=== PATIENT | female | born 1955 | race Caucasian/White ===

== ENCOUNTER 2019-01-06 11:31 | Inpatient (IN) ==
--- NOTE | 2018-11-25 13:42 | PAT Medication Instructions ---
Medication Instructions Date of Service November 25, 2018 Home Medications amitriptyline 25 mg PO HS conjugated estrogens [Premarin] 1.25 mg VAGINAL 2XWK levothyroxine 112 mcg PO DAILY pantoprazole 40 mg PO DAILY PRN Continue as directed conjugated estrogens [Premarin] 1.25 mg VAGINAL 2XWK Take morning of surgery With a small sip of water, OTHERWISE NOTHING TO EAT OR DRINK AFTER MIDNIGHT: levothyroxine 112 mcg PO DAILY pantoprazole 40 mg PO DAILY PRN (if needed) Take evening before surgery amitriptyline 25 mg PO HS Other Notes If you have any questions please call us at [phone] or [phone] or [phone] or [phone]
--- NOTE | 2018-11-29 13:07 | Anesthesiology Consultation ---
Date of Service November 29, 2018 Assessment & Plan (1) Encounter for pre-operative examination: Chart Review Chart Review: Acceptable Risk for Surgery (pending preop testing (labs, EKG, CXR)) and Patient seen in Pre Admission Testing Teaching & Discussion Pre-Anesthesia Teaching/Discussion Notes: Instructed NPO after midnight before surgery,except medications with 15 cc of water. Medication instructions provided according to the PAT guidelines. History Surgery Operation Date: 01/06/19 13:00 Proposed Procedures p Right Anterior Total Hip Arthroplasty - Francis Bartholomew DO Height/Weight Height: 5 ft 5 in Weight: 64.4 kg Allergies Allergy/AdvReac Type Severity Reaction Status Date / Time No Known Allergies Allergy Verified 11/22/18 15:06 Medications Home Medications Medication Instructions Recorded Confirmed Last Taken amitriptyline 25 mg PO HS 11/22/18 11/22/18 Unknown conjugated estrogens [Premarin] 1.25 mg VAGINAL 2XWK 11/22/18 11/22/18 Unknown levothyroxine 112 mcg PO DAILY 11/22/18 11/22/18 Unknown pantoprazole 40 mg PO DAILY PRN 11/22/18 11/22/18 Unknown Past Medical History Medical History GERD (gastroesophageal reflux disease) diet controlled Hx of Graves' disease s/p thyroidectomy Osteoarthritis Presence of pessary Exercise / Class Metabolic Activity II 4-5 Yardwork/Stairs/Walk up hill Past Family History Family History Father Family history of diabetes mellitus Sister FHx: lung cancer Past Surgical History Surgical History Hx of colonoscopy Hx of total thyroidectomy Past Anesthesia History No Hx of Anesthesia Complications and No Family Hx of Anesthesia Complications History of PONV No Hx of PONV and Hx of Motion Sickness (rare on boats) Social History Smoking Status: Never smoker Do You Dip or Chew Tobacco: No Hx Alcohol Use: No Hx Substance Use: No Review of Systems Reflux controlled. Patient denies chest pain, shortness of breath, dyspnea on e xertion, cough, wheezing, palpitations. Physical Exam Vital Signs VITALS BP 151/91 P 81 TEMP 98.8 SP02 97%RA RESP 16 PHYSICAL Full neck and c-spine range of motion. Full TMJ range of motion. TMD 3 finger breaths Mallampati Score 2 Dentition: missing/chipped molars per patient Lungs: clear throughout to auscultation Cardiac: regular rate and rhythm, I/ systolic murmur Spine: normal Carotid arteries: negative bruit Extremities: no edema
--- NOTE | 2018-11-29 14:03 | XRay Report ---
TWO VIEW CHEST CLINICAL HISTORY: Preoperative examination. FINDINGS: PA and lateral chest radiographs are obtained. No prior studies are available for compariso n at the time of dictation. The cardiomediastinal silhouette is unremarkable. There are scattered t iny calcified granulomas. No airspace consolidation or pleural effusion is identified. There is no pn eumothorax. The bony thorax appears intact. There is mild S-shaped thoracolumbar scoliosis. IMPRESSION: No active disease in the chest. Electronically signed by: Lenin Hudson M.D. 11/29/2018 2:02 PM
[2018-11-29 14:54] LABS: Basophils # (auto) 0.02 K/uL (0-0.2); Basophils % (auto) 0.3 %; Eosinophils # (auto) 0.05 K/uL (0-0.5); Eosinophils % (auto) 0.7 %; Hematocrit (blood only) 42.4 % (37-47); Hemoglobin 14.9 g/dL (12.0-16.0); Immature Granulocytes # (auto) 0.01 K/uL (0.00-0.02); Immature Granulocytes % (auto) 0.1 %; Lymphocytes # (auto) 1.39 K/uL (1.2-3.4); Mean Corpuscular Hemoglobin 31.6 pg (25-34); Mean Corpuscular Hgb Conc 35.1 g/dL (32-36); Mean Corpuscular Volume 89.8 fL (80-100); Mean Platelet Volume 9.4 fL (7.4-10.4); Monocytes # (auto) 0.47 K/uL (0.11-0.59); Monocytes % (auto) 6.4 %; Neutrophils # (auto) 5.39 K/uL (1.4-6.5); Neutrophils % (auto) 73.5 %; Platelet Count 245 K/uL (130-400); RDW Coefficient of Variation 11.7 % (11.5-14.5); RDW Standard Deviation 37.9 fL (36.4-46.3); Red Blood Count 4.72 M/uL (4.2-5.4); White Blood Count 7.33 K/uL (4.8-10.8)
[2018-11-29 15:01] LABS: BUN Creatinine Ratio 26.3 (10-20); Calcium 9.5 mg/dl (8.5-10.1); Creatinine Clr Calc Pharmacy 82.7 ml/min; Est GFR (African American) 110.3; Est GFR (Non-African American) 95.1; Potassium 4.5 mmol/L (3.5-5.1)
[2018-11-29 15:04] LABS: Partial Thromboplastin Ratio 0.9; Partial Thromboplastin Time 23.9 Seconds (21.0-31.0); Prothrombin Time 10.3 Seconds (9.0-12.0)
--- NOTE | 2019-01-06 06:34 | History & Physical Report ---
Date of Service January 06, 2019 Assessment & Plan (1) Osteoarthritis of right hip: We will proceed with a right anterior total hip arthroplasty. Postoperatively she will be placed on aspirin for DVT prophylaxis. She will be kept overnight in the hospital for postoperative medical management. She plans to use [facility] in [facility] for physical therapy upon discharge. Present on Admission?: Yes History of Present Illness Chief Complaint: Primary osteoarthritis of the right hip Primary Care Provider: NO PCP Reva is a pleasant 63-year-old female who is been dealing with chronic increasing right hip and groin pain. X-rays and clinical examination have been diagnostic for primary osteoarthritis of the right hip. After failing conservative treatment, she has elected to proceed with a right anterior total hip arthroplasty. Allergies Allergy/AdvReac Type Severity Reaction Status Date / Time No Known Allergies Allergy Verified 11/22/18 15:06 Home Medications Home Medications Medication Instructions Recorded Confirmed Type amitriptyline 25 mg PO HS 11/22/18 11/22/18 History conjugated estrogens [Premarin] 1.25 mg VAGINAL 2XWK 11/22/18 11/22/18 History levothyroxine 112 mcg PO DAILY 11/22/18 11/22/18 History pantoprazole 40 mg PO DAILY PRN 11/22/18 11/22/18 History Past Med/Surg History Medical History GERD (gastroesophageal reflux disease) diet controlled Hx of Graves' disease s/p thyroidectomy Osteoarthritis Presence of pessary Surgical History Hx of colonoscopy Hx of total thyroidectomy Family History Father Family history of diabetes mellitus Sister FHx: lung cancer Social History Preferred Language: [place] Islander Communication Ability: Effective Beliefs That Will Affect Care: None Current Living Situation: Family Feels Safe at Home: Yes Smoking Status: Never smoker Tobacco Type: smokeless tobacco ; Hx Alcohol Use: No Hx Substance Use: No Review of Systems All systems reviewed & are unremarkable except as noted in HPI & below Physical Exam Constitutional: WD/WN, vitals as above Eyes: PERRL, conjunctivae normal, anicteric sclerae ENMT: external ear and nose normal, oropharynx normal Neck: trachea midline, no thyromegaly Respiratory: normal respiratory effort Cardiovascular: RRR, no murmur, no edema Gastrointestinal (Abdomen): normal bowel sounds, soft, nontender, no hepatosplenomegaly Musculoskeletal: Physical examination of the right hip reveals decreased range of motion with flexion, internal and external rotation. There is significant groin pain with forced internal rotation of the hip his leg lengths are essentially equal. Psychiatric: A+Ox3, euthymic affect Results & Data Diagnostic Findings Radiographs of the right hip and pelvis demonstrate advanced osteoarthritis with joint space narrowing osteophyte formation and [id number] articulation.
[~2019-01-06 11:31] MED LIST: ACETAMINOPHEN 500 MG TAB PO SCH; BUPIVACAINE 0.5 % 5 MG/1 ML PF 10ML VIAL ONE; CEFAZOLIN 1000MG 1,000 MG/7.5 ML SYR IV SCH; FAMOTIDINE 20 MG TAB PO SCH; GABAPENTIN 600 MG DOSE PO SCH; LR 500ML BOLUS IV SCH; LR 60ML/HR IV SCH; MIDAZOLAM HCL 1 MG/ML 2ML VIAL ONE; ROPIVACAINE 0.5% HCL/PF 150 MG, BUPIVACAINE 0.5% MPF 30 ML, EPINEPHrine 30MG/30ML (OR U... INSTIL SCH; TRANEXAMIC ACID 1,000 MG **IV Intra-op IV SCH; TRANEXAMIC ACID 1,000 MG **IV Pre-op IV SCH
[2019-01-06] MEDS ORDERED: ATROPINE SULFATE 0.1 MG/ML 10ML SYR IV PRN (12:14)
[2019-01-06] MEDS ORDERED: ONDANSETRON INJ 2 MG/ML 2 ML VIAL IV PRN ×2 (12:14→15:37)
[2019-01-06] MEDS ORDERED: fentaNYL citrate 100 MCG/2 ML VIAL IV PRN (12:14)
[2019-01-06] MEDS ORDERED: ePHEDrine sulfate 50 MG/ML AMP IV PRN (12:14)
[2019-01-06] MEDS ORDERED: ORTHO JOINT ANESTHETIC ONE (12:21)
[2019-01-06] MEDS ORDERED: PROPOFOL IV EMULSION 10 MG/ML 20 ML VIAL IV ONE (13:14)
[2019-01-06] MEDS ORDERED: ONDANSETRON INJ 2 MG/ML 2 ML VIAL ONE (13:15)
[2019-01-06] MEDS ORDERED: DEXAMETHASONE SOD INJ 4 MG/ML VIAL ONE (13:15)
[2019-01-06] MEDS ORDERED: LIDOCAINE HCL 2% 2 ML VIAL/AMP(20MG/ML) INFIL ONE (13:51)
--- NOTE | 2019-01-06 14:00 | Operative Report ---
Post Operative Report Pre & Post Diagnosis Operation Date: 01/06/19 13:40 Pre-Op Diagnosis: Degenerative Joint Disease, Right Hip Post-Op Diagnosis: Degenerative Joint Disease, Right Hip I identified the patient and participated in the time-out.: Yes Procedure Operation Date: 01/06/19 13:40 Actual Procedures p Right Anterior Total Hip Arthroplasty(Right) - Francis Bartholomew DO Surgeon Francis Bartholomew DO Physical Ther Francis Caraballo PAC Estimated Blood Loss 250 Findings Consistent with Post-Op Diagnosis Specimens Right femoral head Complications none Disposition Disposition: Recovery Room Indications Reva is a pleasant 63-year-old female who presented my office with complaints of chronic increasing right hip pain. X-rays and clinical examination were diagnostic for primary osteoarthritis of the right hip. After failing conservative treatment, she elected to proceed with a right anterior total hip arthroplasty. Description of Procedure Implants used Biomet Taperloc total hip arthroplasty system with a size 9 mm high offset Taperloc stem, a 48 mm G7 cup with a 25mm screw, an E1 polyethylene liner, a 32 mm ceramic head with a -6 neck. Patient arrived at the hospital for the above procedure. They were seen in the preoperative holding area and the operative extremity was identified and signed. They were given a spinal anesthetic. They were given a preoperative antibiotic and TXA. They were taken back To the operating room and laid on the table in the supine position. The leg was brought out through a Puristst leg positioner. The hip was then prepped and draped in sterile fashion. A timeout was done and the patient and the operative extremity was properly identified. An anterior approach was used. Dissection was taken down through the fascia and the tensor muscle belly was retracted laterally and the rectus was retracted medially. The circumflex vessels were identified and ligated. The capsule was then incised and tagged for later repair. The femoral neck was then cut and the femoral head was removed. The acetabulum was exposed. Time was spent doing a complete circumferential labral release. Sequential reaming of the acetabulum up to a size 47 reamer was done. Final reamings were done under fluoroscopy to ensure appropriate version. A Biomet 48 mm G7 cup was then impacted into place. A single 25 mm screw was placed. The E1 polyethylene liner was then snapped into place. Surrounding soft tissues were then injected with 100 cc of an orthopedic pain control cocktail. The proximal femur was then exposed. Sequential broaching up to a size 9 broach was done. Off that broach a size 32 head with a -6 neck was trialed. The hip was reduced and fluoroscopic images showed anatomic alignment of the implants in acceptable length. The broach was removed. The final size 9 high offset Taperloc stem was then impacted into place. A ceramic 32 mm head with a -6 neck was then impacted into place in the hip was reduced. Final fluoroscopic images showed anatomic reduction of the hip. The capsule was then closed with #1 Vicryl suture. A dilute betadyne lavage was then done for 3 minutes. The joint was then irrigated with normal saline solution. The fascia was closed with #1 PDS suture. Skin was closed with 2-0 Vicryl, quyen, and a Maria Del Rosario VAC dressing. The patient was then transferred to a hospital bed and taken to the post anesthesia care unit in stable condition. They tolerated the procedure well. I attest to the content of the Intraoperative Record and any orders documented therein. Any exceptions are noted below.
--- NOTE | 2019-01-06 14:44 | Fluoroscopy Report ---
INTRAOPERATIVE RADIOGRAPHS CLINICAL HISTORY: Right knee arthroplasty. Fluoroscopy time: 22 seconds. FINDINGS: 2 spot fluoroscopic views of the right hip from an arthroplasty procedure are presented. Th e first image shows surgical absence of the right femoral head. The acetabular cup is in place and is transfixed by a single cortical lag screw. The second image shows a bipolar right hip arthroplasty i n near anatomic alignment. There is no evidence of fracture on these fluoroscopic images. IMPRESSION: Intraoperative images from a right hip arthroplasty procedure as above. Electronically signed by: Lenin Hudson M.D. 01/06/2019 2:42 PM
--- NOTE | 2019-01-06 14:57 | XRay Report ---
AP PELVIS, CROSSTABLE LATERAL RIGHT HIP History: Right total hip arthroplasty. Degenerative arthritis. Postop. FINDINGS: The patient is status post a right total hip arthroplasty. The hardware is intact. No fract ure or dislocation. Skin quyen and surgical drains are in place. IMPRESSION: Right total hip arthroplasty. No evidence for hardware complication Electronically signed by: Donovan Verdin M.D. 01/06/2019 2:56 PM
--- NOTE | 2019-01-06 15:18 | Anesthesiology Progress Note ---
Date of Service January 06, 2019 Anesthesia Post Procedure Vital Signs Vital Signs: Temp Pulse Pulse Resp BP Pulse Ox 01/06/19 15:01 36.9 C 65 17 122/75 100 01/06/19 15:00 36.9 C 71 17 122/75 99 01/06/19 14:50 71 12 131/72 99 01/06/19 14:40 64 12 123/79 99 01/06/19 14:30 36.4 C L 83 12 135/76 99 01/06/19 12:07 37.1 C 79 20 145/93 H 99 Transfer of Care Handoff Completed per policy Notes Mental Status: alert / awake / arousable and participated in evaluation Patient Amnestic to Procedure: Yes Nausea / Vomiting: adequately controlled Pain: adequately controlled Airway Patency, RR, SpO2: stable & adequate BP & HR: stable & adequate Hydration State: stable & adequate Neuraxial Anesthesia: was administered and sensory block is resolving Anesthetic Complications: no major complications apparent and Pt Satisfied with anesthetic care
[2019-01-06] MEDS ORDERED: MAGNESIUM HYDROXIDE SUSP 30 ML UDC PO PRN (15:37)
[2019-01-06] MEDS ORDERED: HYDROmorphone INJ 0.5 MG/0.5 ML SYR IV PRN (15:37)
[2019-01-06] MEDS ORDERED: NALOXONE HCL 0.4 MG/1 ML VIAL/CARP IV PRN (15:37)
[2019-01-06] MEDS ORDERED: SODIUM CHLORIDE 0.9% 1000ML 1,000 ML IV SCH (15:37)
[2019-01-06] MEDS ORDERED: bisacodyL 10 MG SUPP PR PRN (15:37)
[2019-01-06] MEDS ORDERED: PANTOprazole 40 MG TAB PO PRN (15:37)
[2019-01-06] MEDS ORDERED: METOCLOPRAMIDE HCL INJ 5 MG/ML 2 ML VIAL IV PRN (15:37)
[2019-01-06] MEDS ORDERED: INFLUENZA VACCINE HIGH DOSE 65+ 0.5 ML SYR IM ONE (16:30)
[2019-01-06] MEDS ORDERED: INFLUENZA ADMINISTRATION CHARGE ONE (16:30)
[2019-01-06] MEDS ORDERED: Nursing to Pharmacy Communication ONE (18:15)
[2019-01-06] MEDS: KETOROLAC 30 MG/ML VIAL IV SCH ×2 (18:41→23:41)
[2019-01-06] MEDS: ASPIRIN 81 MG ECTAB PO SCH (20:13)
[2019-01-06] MEDS: DOCUSATE SODIUM 100 MG CAP PO SCH (20:13)
[2019-01-06] MEDS: CEFAZOLIN 2000MG 2,000 MG/15 ML SYR IV SCH (20:13)
[2019-01-06] MEDS: ACETAMINOPHEN 500 MG TAB PO SCH (20:13)
[2019-01-06] MEDS ORDERED: SENNA 8.6 MG TAB PO SCH (21:00)
[2019-01-06] MEDS ORDERED: AMITRIPTYLINE HCL 25 MG TAB PO SCH (21:00)
[2019-01-07] MEDS: OXYCODONE HCL IR 5 MG TAB (IMMEDIATE RELEASE) PO PRN ×2 (02:33→10:38)
[2019-01-07] MEDS: CEFAZOLIN 2000MG 2,000 MG/15 ML SYR IV SCH (04:28)
[2019-01-07 05:57] LABS: Basophils # (auto) 0.01 K/uL (0-0.2); Basophils % (auto) 0.1 %; Eosinophils # (auto) 0.01 K/uL (0-0.5); Eosinophils % (auto) 0.1 %; Hemoglobin 11.5 g/dL (12.0-16.0); Immature Granulocytes # (auto) 0.04 K/uL (0.00-0.02); Immature Granulocytes % (auto) 0.3 %; Lymphocytes # (auto) 1.06 K/uL (1.2-3.4); Lymphocytes % (auto) 7.7 %; Mean Corpuscular Hemoglobin 31.3 pg (25-34); Mean Corpuscular Hgb Conc 34.8 g/dL (32-36); Mean Corpuscular Volume 89.7 fL (80-100); Mean Platelet Volume 9.1 fL (7.4-10.4); Monocytes # (auto) 1.11 K/uL (0.11-0.59); Monocytes % (auto) 8.1 %; Neutrophils # (auto) 11.46 K/uL (1.4-6.5); Neutrophils % (auto) 83.7 %; Platelet Count 211 K/uL (130-400); RDW Coefficient of Variation 11.6 % (11.5-14.5); RDW Standard Deviation 38.1 fL (36.4-46.3); Red Blood Count 3.68 M/uL (4.2-5.4); White Blood Count 13.69 K/uL (4.8-10.8)
[2019-01-07] MEDS: ACETAMINOPHEN 500 MG TAB PO SCH (06:14)
[2019-01-07] MEDS: KETOROLAC 30 MG/ML VIAL IV SCH (06:15)
[2019-01-07 06:29] LABS: BUN Creatinine Ratio 24.8 (10-20); Calcium 7.8 mg/dl (8.5-10.1); Creatinine Clr Calc Pharmacy 64.7 ml/min; Est GFR (African American) 92.5; Est GFR (Non-African American) 79.8; Potassium 3.7 mmol/L (3.5-5.1)
[2019-01-07] MEDS ORDERED: LEVOTHYROXINE SODIUM 112 MCG TABLET PO SCH (06:30)
[2019-01-07] MEDS: ASPIRIN 81 MG ECTAB PO SCH (08:52)
[2019-01-07] MEDS: DOCUSATE SODIUM 100 MG CAP PO SCH (08:52)
[2019-01-07] MEDS ORDERED: MULTIVITAMIN TAB PO SCH (09:00)
--- NOTE | 2019-01-07 09:15 | Orthopedic Progress Note ---
Date of Service January 07, 2019 Assessment & Plan (1) Osteoarthritis of right hip: Overall she is doing very well. She is not having much pain in the right hip. She will be seen by physical therapy today for ambulation and range of motion exercises. She is on aspirin for DVT prophylaxis. She can be discharged home later today with outpatient physical therapy at [facility] in [facility]. She will follow-up with orthopedics in 2 weeks. Present on Admission?: Yes Subjective Reva was seen and examined at bedside this morning. Overall she is doing very well. She is not having much pain in the right hip. She is happy with her progress to this point. She has no complaints. Physical Exam Musculoskeletal: On physical examination of the right hip, the Maria Del Rosario VAC dressing is to suction. Her leg lengths are equal. She is active dorsiflexion and plantarflexion of her right ankle. Sensations intact throughout. Results & Data Vital Signs (Past 12 Hours) Vital Signs Temp Pulse Resp BP Pulse Ox 01/07/19 08:37 36.6 C 87 18 109/64 94 01/07/19 03:17 36.3 C L 78 18 104/67 100 01/06/19 23:14 36.6 C 71 16 101/65 97 Laboratory Results H & H 11/29/18 01/07/19 Range/Units 13:24 05:14 Hgb 14.9 11.5 L (12.0-16.0) g/dL Hct 42.4 33.0 L (37-47) % Coagulation 11/29/18 Range/Units 13:24 INR 1.0 (0.9-1.1) Diagnostic Findings Postoperative x-rays of the right hip show the prosthesis to be in anatomic alignment without any evidence of fracture, dislocation, or loosening. PG Care Time/CCT Total # of Minutes Spent Total Time Spent with Patient: Total time spent is greater than 50% in coordination of care (as documented) at patient's floor/unit and/or counseling patient:
--- NOTE | 2019-01-07 09:18 | Discharge Summary ---
Date of Service January 07, 2019 Admission HPI Per Admitting Provider Reva is a pleasant 63-year-old female who is been dealing with chronic increasing right hip and groin pain. X-rays and clinical examination have been diagnostic for primary osteoarthritis of the right hip. After failing conservative treatment, she has elected to proceed with a right anterior total hip arthroplasty. Principal Diagnosis Right total hip arthroplasty Discharge Data Allergies Allergy/AdvReac Type Severity Reaction Status Date / Time No Known Allergies Allergy Verified 01/06/19 12:04 Consultations 01/07/19 08:00 Consult Case Management - Discharge Planning Routine Procedures Performed Operation Date: 01/06/19 13:40 Actual Procedures p Right Anterior Total Hip Arthroplasty(Right) - Francis Bartholomew DO Ordered Studies 01/06/19 07:00 FL fluoroscopy <1hr Routine FL hip RT 1V Routine Hospital Course (1) Osteoarthritis of right hip: On January 06, 2019 Reva arrived at [facility] and underwent a right total hip arthroplasty without complication. She had a spinal anesthetic. Postoperatively she was started on aspirin for DVT prophylaxis and discharged to general orthopedic floors. Her hospital course was uneventful. On postop day #1 her H&H was stable and her pain was well controlled. She was able to ambulate well with physical therapy. She was then discharged home with outpatient physical therapy. She will follow-up with orthopedics in 2 weeks. Total Time Total Time Spent Total Time Spent (In Minutes): 20 Discharge Plan Discharge Items Patient Disposition: Home - Home Health Services Reason For Visit: Degenerative Joint Disease, Right Hip Discharge Diagnosis: Right total hip arthroplasty Activity: As commented below Non-emergency contact: Surgeon Call non-emergency contact if: your wound has increased redness and your wound has increased drainage Follow-up/Referrals: PCP,NO [Primary Care Provider] - Diet: Carb Consistent or DM2 Addtl Attending Provider Instructions: Activity and Therapy Recommendations: * If you are using [facility] then therapy will be provided at your home until they feel you have accomplished all of your goals. * If you are using [facility] then Physical Therapy will be provided until they feel you are ready to start Outpatient Physical Therapy. * If you are not using home therapy then Outpatient Physical Therapy should start about 3-5 days from your day of surgery. Therapy will last about 6-10 weeks * You were shown a series of exercises in the hospital. Do these exercises three times each day including the exercises you were shown in physical therapy. * Get up and walk several times each day.~ For the first four weeks, try not to stand or walk for more than one hour at a time. If you do stand or walk for more than one hour, you will not hurt anything, but your leg will likely swell.~~ * As you feel comfortable, you may change from the walker or crutches to a cane and~then to independent walking. Medications: * Narcotic You will likely be sent home from the hospital with a prescription for the narcotic pain medication that worked best throughout your stay. * Aspirin Most patients will be required to take Aspirin 81mg twice a day for 6 weeks after surgery. This is obtained [id number] and a prescription is not necessary. * Other medications may be prescribed for specific circumstances. If you have any questions, please call the office at . * Resume previous home medications unless otherwise instructed TEDs/Elastic Stockings: The white elastic stockings help limit swelling and prevent blood clots from forming in your legs. The more you wear them, the more they work. Wear them for six weeks. Dressing Care: You will likely have a purple VAC dressing after surgery. This dressing will keep the incision dry and promote early healing. After about 7 days the batteries will wear out and the VAC will lose suction. Simply remove the dressing at that time and throw everything away, including the small suction machine. Then, you may leave the quyen open to air or cover them with a dry dressing so they do not rub on your pants. The quyen will be removed at your 2 week follow-up appointment. Showering: You may shower immediately with the purple VAC dressing. Let the shower spray hit your opposite side and slowly pat the plastic dry. Do not soak the dressing. After the dressing is removed you may shower normally with the quyen exposed. Let soapy water run over the quyen and pat them dry. Things To Watch For: * Drainage from the incision site that occurs more than one week after your surgery. * Increased redness at the incision site. * Fever above 102 degrees Fahrenheit. * Unusual chest pain or shortness of breath. * [facility] at with any of the above problems Follow-Up Visit: Follow-up with Dr. Bartholoemw 2-3 weeks after your day of surgery. An appointment was probably scheduled when you signed-up for surgery in the office. If you have any questions call Office Instructions: More detailed instructions as well as Frequently Asked Questions were provided in a folder by our office when you signed-up for surgery. Please review these instructions when you get home. If you have any further questions or concerns, please feel free to call the office at [phone] Pending Studies at Discharge: No Stand-Alone Forms: My [facility] Medications and DC Order Prescriptions: New oxycodone 5 mg Tablet 5 mg PO Q4H PRN (Reason: pain) Qty: 30 RF: 0 aspirin [Ecotrin Low Strength] 81 mg Tablet,Delayed Release (Dr/Ec) 81 mg PO BID Qty: 84 RF: 0 Continued amitriptyline 25 mg Tablet 25 mg PO HS RF: 0 pantoprazole 40 mg Tablet,Delayed Release (Dr/Ec) 40 mg PO DAILY PRN (Reason: STOMACH ISSUES) RF: 0 Premarin 0.625 mg/gram Cream 1.25 mg VAGINAL 2XWK RF: 0 levothyroxine 112 mcg Tablet 112 mcg PO DAILY RF: 0 Discharge Orders: Discharge Order (Routine); Ordered 01/07/19 Ordered By: Francis Bartholomew Admission Data Admit Date/Time: 01/06/19 14:36 Attending Provider: Francis Bartholomew Admit Provider: Francis Bartholomew Primary Care Provider: PCP,NO
--- NOTE | 2019-01-07 09:34 | Anesthesiology Progress Note ---
Date of Service January 07, 2019 Anesthesia Post Procedure Vital Signs Vital Signs: Temp Pulse Pulse Resp BP Pulse Ox 01/07/19 09:23 36.6 C 87 18 109/64 94 01/07/19 08:37 36.6 C 87 18 109/64 94 01/07/19 03:17 36.3 C L 78 18 104/67 100 01/06/19 23:14 36.6 C 71 16 101/65 97 01/06/19 20:11 36.6 C 86 16 124/78 98 01/06/19 18:20 36.5 C 94 H 16 155/90 H 95 01/06/19 17:20 36.3 C L 67 15 108/72 96 01/06/19 16:20 36.4 C L 65 16 156/92 H 98 01/06/19 15:48 36.3 C L 79 16 129/82 95 01/06/19 15:20 36.7 C 73 16 126/76 95 01/06/19 15:01 36.9 C 65 17 122/75 100 01/06/19 15:00 36.9 C 71 17 122/75 99 01/06/19 14:50 71 12 131/72 99 01/06/19 14:40 64 12 123/79 99 01/06/19 14:30 36.4 C L 83 12 135/76 99 01/06/19 12:07 37.1 C 79 20 145/93 H 99 Pain Intensity Right Hip: Pain Intensity: 4 Notes Mental Status: alert / awake / arousable and participated in evaluation Patient Amnestic to Procedure: Yes Nausea / Vomiting: adequately controlled Pain: adequately controlled Airway Patency, RR, SpO2: stable & adequate BP & HR: stable & adequate Hydration State: stable & adequate Neuraxial Anesthesia: was administered and sensory block resolved Anesthetic Complications: no major complications apparent
[2019-01-09] MEDS ORDERED: PREMARIN VAG CRM 14 APPLN/30 GM TUBE PV SCH (09:00)
== END 2019-01-07 11:24 | disposition home or self-care (01) | DRG 470 ==
LOC: ASU 11:31 → 3E 14:36